=== PATIENT | female | born 1995 | race Caucasian/White ===

== ENCOUNTER 2022-08-30 19:52 | Outpatient (REF) | payer MEDICAID, SELFPAY ==
[2022-08-31 17:58] LABS: Estradiol 37 pg/mL (See Note); Progesterone 1.5 ng/mL (See Table)
[2022-09-09 10:02] LABS: Testosterone, Free 0.37 ng/dL (<0.13-1.06); Testosterone, Total 19 ng/dL (8-60)
== END 2022-08-30 19:53 | disposition home or self-care (01) ==
LOC: NCHCN 19:52
PROVIDERS: PCP Nurse Practitioner Family; Visit Provider Nurse Practitioner Family
DX: F90.0 Attention-deficit hyperactivity disorder, predominantly inattentive type (principal); N92.5 Other specified irregular menstruation; L70.0 Acne vulgaris
CPT/HCPCS: 84402; 84403; 82670; 84144

== ENCOUNTER 2023-03-21 16:05 | Outpatient (REF) | payer MEDICAID, SELFPAY ==
--- NOTE | 2023-03-21 13:50 | PAPFT_PTH ---
PATIENT: Nina Pritchett [id number] AGE/SX: 27/F ROOM: RE03/21/[address]: CHETNA PARK : 1995 BED: DIS: 03/21/2023 SPEC #: [id number] RECD: 03/21/23 18:23 STATUS: GUY REQ #: [id number] DYANA: 03/21/23 13:[address]: Chetna Park DEPT: [facility] Cytology RECD BY: Vale Arellano ENTERED: 03/21/23 18:23 SP TYPE: PAPFT OTHR DR: Steff Choudhary Tissues: 1 - CX/ENDOCX FOR PAP SMEARS Procedures: PAP THIN PREP/[facility] Screening Comments: [id number] (CHLAMYDIA/GC)
[2023-03-22 14:41] LABS: Chlamydia Result Negative (Negative); GC Result Negative (Negative)
== END 2023-03-21 16:06 | disposition home or self-care (01) ==
LOC: NCHCN 16:05
PROVIDERS: PCP Nurse Practitioner Family; Visit Provider Nurse Practitioner Family
DX: Z00.00 Encounter for general adult medical examination without abnormal findings (principal); Z12.4 Encounter for screening for malignant neoplasm of cervix; Z11.51 Encounter for screening for human papillomavirus (HPV)
CPT/HCPCS: 87491; 87591; 88142; 87480; 87510; 87660